=== PATIENT | male | born 1980 | race American Indian/Alaskan Native ===

== ENCOUNTER 2022-03-05 13:39 | Emergency (ER) | payer SELFPAY ==
[2022-03-05 13:53] VITALS: BP 130/78
[2022-03-05] MEDS ORDERED: dexAMETHasone 4 MG/ML VIAL IM ONE (17:06)
[2022-03-05] MEDS ORDERED: CYCLOBENZAPRINE 10 MG TAB PO ONE (17:06)
[2022-03-05] MEDS ORDERED: oxyCODONE /ACETAMINOPHEN 5-325MG TAB PO ONE (17:07)
[2022-03-05] MEDS ORDERED: KETOROLAC 10 MG TAB PO ONE (17:07)
--- NOTE | 2022-03-05 17:11 | Emergency Department Report ---
ED Back Pain/Injury HPI - General Chief Complaint: Back Pain/Injury Stated Complaint: BACK PAIN Time Seen by Provider: 03/05/22 16:40 Source: EMS Limitations: No Limitations - History of Present Illness Initial Comments: 42-year-old black male with no past medical history presents to the emergency department for evaluation of 5-day history of worsening left lower back pain. He states that he woke up with the back pain a few days ago and it has been getting increasingly worse since then. He denies injury, trauma, dysuria, fever, abdominal pain. He states that pain is 8 out of 10 unrelieved by Aleve at home. Complaint: back pain -: Gradual, days(s) Similar Symptoms Previously: No (5) Place: home Radiation: none Severity: severe Severity scale (0 -10): 8 Quality: aching Consistency: constant Worsens With: movement, walking Associated Symptoms: denies: weakness, chest pain, numbness, difficulty walking, cough, difficulty urinating, diaphoresis, incontinence, fever/chills, headaches, abdominal pain, loss of appetite, malaise, nausea/vomiting, shortness of breath, syncope - Related Data Previous Rx's Medication Instructions Recorded Last Taken Type Amoxicillin [Trimox CAP] 500 mg PO Q8H #30 capsule 10/29/14 Unknown Rx HYDROcodone/APAP 10-325 [[place] 1 each PO Q6HR PRN #20 tablet 10/29/14 Unknown Rx 10-325 mg TAB] Acetaminophen/Codeine [Tylenol #3] 1 tab PO Q6H PRN #15 tab 10/31/15 Unknown Rx Ibuprofen [Motrin 800 MG tab] 800 mg PO Q8HR PRN #30 tablet 10/31/15 Unknown Rx Penicillin Vk [Veetids TAB] 500 mg PO QID #40 tablet 10/31/15 Unknown Rx Cyclobenzaprine [Flexeril] 10 mg PO TID PRN #21 tab 03/05/22 Unknown Rx Lidocaine [Lidoderm] 1 each TP DAILY #10 patch 03/05/22 Unknown Rx Naproxen [Naprosyn] 500 mg PO BID #14 tab 03/05/22 Unknown Rx Allergies Allergy/AdvReac Type Severity Reaction Status Date / Time No Known Allergies Allergy Verified 10/29/14 05:06 ED Review of Systems ROS: Stated complaint: BACK PAIN Other details as noted in HPI Comment: All other systems reviewed and negative Constitutional: denies: chills, fever Respiratory: denies: cough, shortness of breath, SOB with exertion, SOB at rest Cardiovascular: denies: chest pain, palpitations, dyspnea on exertion, orthopnea, edema, syncope, paroxysmal nocturnal dyspnea Gastrointestinal: denies: abdominal pain, nausea, vomiting, diarrhea, hematemesis, melena, hematochezia Genitourinary: denies: urgency, dysuria, frequency, hematuria, discharge, testicular pain Musculoskeletal: back pain Skin: denies: rash, lesions Neurological: denies: headache, weakness ED Past Medical Hx - Past Medical History Previous Medical History?: No - Surgical History Past Surgical History?: No - Social History Smoking Status: Never Smoker Substance Use Type: None - Medications Home Medications: Home Medications Medication Instructions Recorded Confirmed Last Taken Type Amoxicillin [Trimox CAP] 500 mg PO Q8H #30 capsule 10/29/14 Unknown Rx HYDROcodone/APAP 10-325 [[place] 1 each PO Q6HR PRN #20 tablet 10/29/14 Unknown Rx 10-325 mg TAB] Acetaminophen/Codeine [Tylenol #3] 1 tab PO Q6H PRN #15 tab 10/31/15 Unknown Rx Ibuprofen [Motrin 800 MG tab] 800 mg PO Q8HR PRN #30 tablet 10/31/15 Unknown Rx Penicillin Vk [Veetids TAB] 500 mg PO QID #40 tablet 10/31/15 Unknown Rx Cyclobenzaprine [Flexeril] 10 mg PO TID PRN #21 tab 03/05/22 Unknown Rx Lidocaine [Lidoderm] 1 each TP DAILY #10 patch 03/05/22 Unknown Rx Naproxen [Naprosyn] 500 mg PO BID #14 tab 03/05/22 Unknown Rx ED Physical Exam - General Limitations: No Limitations General appearance: alert, in no apparent distress - Head Head exam: Present: atraumatic, normocephalic - Eye Eye exam: Present: normal appearance. Absent: conjunctival injection - Neck Neck exam: Present: normal inspection, full ROM. Absent: tenderness, lymphadenopathy - Respiratory Respiratory exam: Present: normal lung sounds bilaterally. Absent: respiratory distress - Cardiovascular Cardiovascular Exam: Present: regular rate, normal heart sounds - GI/Abdominal GI/Abdominal exam: Present: soft, normal bowel sounds. Absent: distended, tenderness, guarding, rebound, rigid - Extremities Exam Extremities exam: Present: normal inspection, normal capillary refill. Absent: pedal edema, joint swelling, calf tenderness - Back Exam Back exam: Present: normal inspection. Absent: CVA tenderness (R), CVA tenderness (L), paraspinal tenderness, vertebral tenderness - Expanded Back Exam Expanded Back exam: Absent: saddle anesthesia Back exam: Positive Straight Leg Raise: Left - Neurological Exam Neurological exam: Present: alert, oriented X3, normal gait - Psychiatric Psychiatric exam: Present: normal affect, normal mood - Skin Skin exam: Present: warm, dry, intact, normal color ED Course Vital Signs 03/05/22 13:53 Temperature 98.1 F Pulse Rate 62 Respiratory 16 Rate Blood Pressure 130/78 [Right] O2 Sat by Pulse 98 Oximetry ED Medical Decision Making - Medical Decision Making 42-year-old black male with no past medical history presents to the emergency department for evaluation of 5-day history of worsening left lower back pain. He states that he woke up with the back pain a few days ago and it has been getting increasingly worse since then. He denies injury, trauma, dysuria, fever, abdominal pain. He states that pain is 8 out of 10 unrelieved by Aleve at home No acute abnormalities noted on exam. Patient will be treated for back pain with anti-inflammatories, muscle relaxant, and one-time dose of Percocet and Decadron while in the emergency department. He i will be discharged home with anti-inflammatories, muscle relaxant, and Lidoderm patch to use as needed at home for back pain. He is advised to take medications as prescribed and follow- up with primary care provider or orthopedics if no improvement or worsening symptoms. He verbalized understanding of and agreement with plan of care. Critical care attestation.: If time is entered above; I have spent that time in minutes in the direct care of this critically ill patient, excluding procedure time. ED Disposition Clinical Impression: Back pain Qualifiers: Back pain location: low back pain Chronicity: acute Back pain laterality: left Sciatica presence: without sciatica Qualified Code(s): M54.50 - Low back pain, unspecified Disposition: 01 HOME / SELF CARE / HOMELESS Is pt being admited?: No Does the pt Need Aspirin: No Condition: Stable Instructions: Acute Back Pain, Adult Additional Instructions: Take medication as prescribed. Follow-up with primary care provider or orthopedics if no improvement or worsening symptoms. Follow-up in the emergency department as needed. Prescriptions: Cyclobenzaprine [Flexeril] 10 mg PO TID PRN #21 tab PRN Reason: Muscle Spasm Lidocaine [Lidoderm] 1 each TP DAILY #10 patch Naproxen [Naprosyn] 500 mg PO BID #14 tab Referrals: DORA MCCORMACK MD [Staff Physician] - 3-5 Days MERCY TORRES MD [Staff Physician] - 3-5 Days Forms: Work/School Release Form Time of Disposition: 17:10
== END 2022-03-05 18:54 | disposition home or self-care (01) ==
LOC: ED 13:39
DX: M54.50 Low back pain, unspecified (principal)
CPT/HCPCS: 96372; 99283; J1100